=== PATIENT | male | born 1940 | race Caucasian/White ===

== ENCOUNTER 2019-03-12 12:01 | Inpatient (IN) | payer MEDICARE, OTHER, SELFPAY ==
[2019-03-12] VITALS (10 sets, daily range): BP systolic 88–148; BP diastolic 51–83; PULSE 86–110; RESP 16–22; TEMP 36.4–37.3; O2SAT 91–96; BMI 34.9
--- NOTE | 2019-03-12 12:26 | ED_ITS ---
Entered by Alyssa Carl, acting as scribe for Erika Bruce MD, [facility] Mar 12, 2019 12:01 HPI - General Adult General: Chief complaint: General Medical Stated complaint: BLEEDING IN A DIAPER Time Seen by Provider: 03/12/19 12:18 Source: patient, family and RN notes reviewed Mode of arrival: ambulatory Limitations: no limitations and altered mental status History of Present Illness: HPI narrative: 78 yo male presents to ED with complaints of bleeding in his Depends. The family states that when the patient got up that the patient's Depend was full of blood and blood clots. She said the bedding was soaked in blood and the bathroom floor was covered in blood. The patient denies pain. He said he does not know where the blood is coming from. The patient's spouse 4 days ago. The patient has Parkinson's and has an implant in his head and one in his chest. The patient has a stroke history as well. The family said that his last known bowel movement was 2 days ago but the patient has not been eating nor drinking much since his . complaint: bleeding in depend Onset (ago): day(s) (1) Location: lower extremity Severity: severe Quality: other (bleeding) Relieving factors: none Exacerbating factors: none Treatments prior to arrival: none Review of Systems General: Reports: ROS unobtainable due to mental status PFSH ED PFSH: Statuses (acute, chronic, etc) shown below reflect problem list status as previously entered and may not be historically accurate Social History Smoking and tobacco status: former smoker Physical Exam Const: COMMON NORMALS: no apparent distress, average body habitus, oriented x3, no limitations, healthy appearing, alert and well nourished HENMT: COMMON NORMALS: normocephalic, head/scalp atraumatic and moist oral mucous membranes HEAD & SCALP: normocephalic and atraumatic Eye: COMMON NORMALS: PERRL, EOMs intact bilaterally, conjunctivae normal and no scleral icterus CONJUNCTIVA: Yes conjunctivae normal PUPIL: Yes PERRL Neck/C-Spine: COMMON NORMALS: full ROM, supple, no meningeal signs, no JVD and no carotid bruits Chest: COMMONS NORMALS: inspection of chest normal and palpation of chest normal Resp: COMMON NORMALS: normal respiratory effort, no retractions, no use of accessory muscles, clear to auscultation bilaterally and percussion normal AUSCULTATION: clear to auscultation bilaterally PERCUSSION: percussion normal Cardio: COMMON NORMALS: no JVD, regular rate, regular rhythm, S1 normal heart sound, S2 normal heart sound, no gallops, no clicks, no murmurs, no rub and peripheral pulses 2+ throughout RATE: regular rate RHYTHM: regular rhythm HEART SOUNDS: S1 normal and S2 normal PERIPHERAL PULSES: pulses 2+ throughout GI: COMMON NORMALS: normal to inspection, nondistended, normoactive bowel sounds, soft to palpation, non-tender, no hepatosplenomegaly, no masses and no bruits PALPATION: Yes soft and Yes no hepatosplenomegaly : COMMON NORMALS: Yes no CVA tenderness BLADDER/KIDNEY EXAM: Yes no CVA tenderness Back/Pelvis: COMMON NORMALS: no CVA tenderness Extremity: COMMON NORMALS: normal to inspection, full ROM, normal capillary refill, no calf tenderness and no pedal edema Neuro: COMMON NORMALS: oriented x3 SENSORIUM/ORIENTATION: Yes alert MENINGEAL SIGNS: Yes no meningeal signs Skin: COMMON NORMALS: no rashes or lesions noted, no wounds, skin turgor normal, no jaundice, no petechiae and no mottling GENERAL SKIN EXAM: no rashes or lesions noted and turgor normal Course Consultations: Consultation #1: Dr. Castle, hospitalist. He kindly accepted the patient to his service. Vital Signs: Vital signs: Vital Signs Temperature 99.2 F 03/12/19 12:07 Pulse Rate 90 03/12/19 13:15 Respiratory Rate 17 03/12/19 13:43 Blood Pressure 105/65 03/12/19 13:43 Pulse Oximetry 92 03/12/19 13:43 MDM - General Adult MDM Narrative: Medical decision making narrative: 78-year-old gentleman with dementia who presented to the emergency department with blood in his diapers which according to his family was a large. They were unable to determine where the blood came from. Digital rectal examination was negative for blood. He had brown stool in his rectum. Guaiac was negative. Cath UA showed grossly bloody urine and on urinalysis he has features suggestive of UTI. CT scan of his abdomen showed possible pyelonephritis. White cell count is significantly elevated at 17.4. He is therefore admitted to the hospital for management of acute pyelonephritis. Medical Records: Attestation: I reviewed the patient's medical records. Lab Data: Attestation: I reviewed the patient's lab results. Labs: Lab Results 03/12/19 03/12/19 03/12/19 Range/Units 12:28 12:28 12:28 WBC 17.4 H (4.0-10.0) 10^3/ uL RBC 4.81 (4.1-5.3) 10^6/u L Hgb 13.5 (11.7-16.6) g/dL Hct 42.1 (42.0-52.0) % MCV 87.5 (80-94) fL MCH 28.1 (28.0-34.0) pg MCHC 32.1 (30.0-36.0) g/dL RDW 13.7 (12.1-15.1) % Plt Count 232 (130-400) 10^3/c mm MPV 10.8 H (7.4-10.4) fL Neut % (Auto) 87.3 % Lymph % (Auto) 6.0 % [place] % (Auto) 5.7 % Eos % (Auto) 0.2 % Baso % (Auto) 0.3 % Neut # (Auto) 15.2 H (1.8-7.7) 10^3/u L Lymph # (Auto) 1.1 (0.8-4.8) 10^3/u L [place] # (Auto) 1.0 H (0.2-0.9) 10^3/u L Eos # (Auto) 0.0 (0.0-0.8) 10^3/u L Baso # (Auto) 0.1 (0.0-0.1) 10^3/u L Nucleated RBC % (a uto) 0 % Nucleated RBCs # 0.0 /100WBC PT 13.70 H (10.5-13.3) SECO NDS INR 1.02 (0.8-1.2) Sodium 139 (136-145) mmol/L Potassium 4.6 (3.5-5.1) mmol/L Chloride 99 (98-107) mmol/L Carbon Dioxide 24 (22-29) mmol/L Anion Gap 20.6 H (5-19) BUN 16 (8-23) mg/dL Creatinine 1.5 H (0.7-1.2) mg/dL Glucose 125 H (74-106) mg/dL Lactate (0.5-2.2) mmol/L Calcium 10.7 H (8.5-10.5) mg/dL Total Bilirubin 0.9 (0.15-1.2) mg/dL AST 20 (0-40) U/L ALT 19 (0-41) U/L Alkaline Phosphata se 57 (40-130) IU/L Total Protein 8.1 (6.6-8.7) g/dL Albumin 4.7 (3.5-5.2) g/dL Globulin 3.4 (1.3-4.6) g/dL Urine Color (Yellow) Urine Appearance (CLEAR) Urine pH (5-7) Ur Specific Gravit y (1.005-1.030) Urine Protein (Negative) Urine Glucose (UA) (Normal) Urine Ketones (Negative) Urine Occult Blood (Negative) Urine Nitrate (Negative) Urine Bilirubin (NEGATIVE) Urine Urobilinogen (Negative) mg/dL Ur Leukocyte Federica ase (Negative) Urine RBC (0-2) /hpf Urine WBC (0-5) /hpf Ur Squamous Epith Cells (0-5) Urine Bacteria (NONE) 03/12/19 03/12/19 Range/Units 13:03 13:12 WBC (4.0-10.0) 10^3/ uL RBC (4.1-5.3) 10^6/u L Hgb (11.7-16.6) g/dL Hct (42.0-52.0) % MCV (80-94) fL MCH (28.0-34.0) pg MCHC (30.0-36.0) g/dL RDW (12.1-15.1) % Plt Count (130-400) 10^3/c mm MPV (7.4-10.4) fL Neut % (Auto) % Lymph % (Auto) % [place] % (Auto) % Eos % (Auto) % Baso % (Auto) % Neut # (Auto) (1.8-7.7) 10^3/u L Lymph # (Auto) (0.8-4.8) 10^3/u L [place] # (Auto) (0.2-0.9) 10^3/u L Eos # (Auto) (0.0-0.8) 10^3/u L Baso # (Auto) (0.0-0.1) 10^3/u L Nucleated RBC % (a uto) % Nucleated RBCs # /100WBC PT (10.5-13.3) SECO NDS INR (0.8-1.2) Sodium (136-145) mmol/L Potassium (3.5-5.1) mmol/L Chloride (98-107) mmol/L Carbon Dioxide (22-29) mmol/L Anion Gap (5-19) BUN (8-23) mg/dL Creatinine (0.7-1.2) mg/dL Glucose (74-106) mg/dL Lactate 2.3 H (0.5-2.2) mmol/L Calcium (8.5-10.5) mg/dL Total Bilirubin (0.15-1.2) mg/dL AST (0-40) U/L ALT (0-41) U/L Alkaline Phosphata se (40-130) IU/L Total Protein (6.6-8.7) g/dL Albumin (3.5-5.2) g/dL Globulin (1.3-4.6) g/dL Urine Color Brown (Yellow) Urine Appearance Hazy A (CLEAR) Urine pH 6.5 (5-7) Ur Specific Gravit y 1.020 (1.005-1.030) Urine Protein 3+ H (Negative) Urine Glucose (UA) Norm (Normal) Urine Ketones 1+ H (Negative) Urine Occult Blood 3+ H (Negative) Urine Nitrate Negative (Negative) Urine Bilirubin Neg (NEGATIVE) Urine Urobilinogen Norm (Negative) mg/dL Ur Leukocyte Federica ase 2+ H (Negative) Urine RBC Too numerous to c nt H (0-2) /hpf Urine WBC >100 H (0-5) /hpf Ur Squamous Epith Cells 0-4 H (0-5) Urine Bacteria 2+ H (NONE) Discharge Plan Discharge Patient Disposition: Admitted As Inpatient Clinical Impression: Acute pyelonephritis, Hematuria due to acute cystitis, Leukocytosis Condition: Stable Prescriptions: No Action atorvastatin 80 mg tablet PO RF: 0 gabapentin 400 mg capsule RF: 0 glipizide 5 mg tablet extended release 24hr PO RF: 0 metformin 850 mg tablet RF: 0 clopidogrel 75 mg tablet RF: 0 mirtazapine 15 mg tablet RF: 0 escitalopram oxalate 20 mg tablet RF: 0 metoprolol tartrate 25 mg tablet RF: 0 losartan-hydrochlorothiazide 100-12.5 mg tablet RF: 0 Referrals: Amie Carranza MD [Family Provider] - Coding Level of Care Code ED Department Specialist for Chg Fwd The documentation recorded by the Meseret scott Valerie R, accurately reflects the service I personally performed and the decisions made by Janis landa Adegoke I, MD, [facility] Mar 12, 2019 12:01
[2019-03-12 13:02] LABS: Basophils # 0.1 10^3/uL (0.0-0.1); Basophils % 0.3 %; Eosinophils % 0.2 %; Hematocrit 42.1 % (42.0-52.0); Hemoglobin 13.5 g/dL (11.7-16.6); Lymphocytes # 1.1 10^3/uL (0.8-4.8); Mean Corpuscular HGB Conc 32.1 g/dL (30.0-36.0); Mean Corpuscular Hemoglobin 28.1 pg (28.0-34.0); Mean Corpuscular Volume 87.5 fL (80-94); Mean Platelet Volume 10.8 fL (7.4-10.4); Monocytes % 5.7 %; Neutrophils # 15.2 10^3/uL (1.8-7.7); Neutrophils % 87.3 %; Nucleated Red Blood Cells % 0 %; Platelet Count 232 10^3/cmm (130-400); Red Blood Count 4.81 10^6/uL (4.1-5.3); Red Cell Distribution Width 13.7 % (12.1-15.1); White Blood Count 17.4 10^3/uL (4.0-10.0)
[2019-03-12 13:16] LABS: INR 1.02 (0.8-1.2)
[2019-03-12 13:21] LABS: Alanine Aminotransferase 19 U/L (0-41); Albumin Level 4.7 g/dL (3.5-5.2); Alkaline Phosphatase 57 IU/L (40-130); Anion Gap 20.6 (5-19); Aspartate Amino Transferase 20 U/L (0-40); Blood Urea Nitrogen 16 mg/dL (8-23); Calcium 10.7 mg/dL (8.5-10.5); Carbon Dioxide 24 mmol/L (22-29); Chloride 99 mmol/L (98-107); Globulin 3.4 g/dL (1.3-4.6); Glucose 125 mg/dL (74-106); Potassium 4.6 mmol/L (3.5-5.1); Sodium 139 mmol/L (136-145); Total Bilirubin 0.9 mg/dL (0.15-1.2); Total Protein 8.1 g/dL (6.6-8.7)
[2019-03-12 13:41] LABS: Lactate (Lactic Acid level) 2.3 mmol/L (0.5-2.2)
--- NOTE | 2019-03-12 13:43 | CTR_ITS ---
PROCEDURE INFORMATION: Exam: CT Abdomen And Pelvis Without Contrast Exam date and time: 03/12/2019 1:44 PM Age: 78 years old Clinical indication: Other: Rectal bleeding; Additional info: Hematuria TECHNIQUE: Imaging protocol: Computed tomography of the abdomen and pelvis without contrast. Total DLP: 1860.86 mGy-cm Radiation optimization: All CT scans at this facility use at least one of these dose optimization techniques: automated exposure control; mA and/or kV adjustment per patient size (includes targeted exams where dose is matched to clinical indication); or iterative reconstruction. COMPARISON: CT abdomen pelvis w con* [id number] 04/23/2017 1:26 PM FINDINGS: Lungs: There is bibasilar linear atelectasis versus scarring. Couple of small calcified granulomas are incidentally noted. Mediastinum: There is a small unchanged hiatal hernia. Liver: Liver calcifications are noted. Gallbladder and bile ducts: Hyper attenuating foci along the dependent portion of the gallbladder likely reflect small gallstones. There is no current CT evidence of acute cholecystitis. Pancreas: No ductal dilation. Spleen: Splenic calcifications are noted. Adrenals: No mass. Kidneys and ureters: There is mild bilateral perinephric stranding, not significantly changed. There is no evidence of hydronephrosis. Punctate nonobstructing calcifications on the left may be vascular or reflect nonobstructing nephroliths. There is an unchanged 1.2 cm inferior left renal cyst. Stomach and bowel: There is a large amount of formed stool within the rectum. There is mild wall thickening at the rectosigmoid junction. A few colonic diverticulum are noted. There is no evidence of diverticulitis. There is no evidence of bowel obstruction. Appendix: No evidence of appendicitis. Intraperitoneal space: No free air. No significant fluid collection. Vasculature: Aortoiliac and branch vessel atherosclerotic calcifications are noted. Lymph nodes: No enlarged lymph nodes. Bladder: The bladder is predominantly decompressed with mixed attenuation centrally and circumferential wall thickening. Reproductive: Unremarkable as visualized. Bones/joints: Partially imaged median sternotomy is noted. Old healed right-sided rib fractures are noted. There is an unchanged compression deformity involving the T12 vertebral body with retropulsion of the posterior superior endplate. There is unchanged grade 1 anterolisthesis of L4 on L5. There are multilevel degenerative changes of the spine. Sclerotic lesion within the right iliac bone is unchanged, likely reflecting a bone island. Soft tissues: There is a small amount of fat within the umbilicus. CT/CT kidney stone [id number] IMPRESSION: 1. Large amount of formed stool within the rectum. Correlate for evidence of impaction/stercoral colitis. 2. Mild wall thickening at the level of the rectosigmoid junction. Findings may be secondary to decompression versus nonspecific colitis. Correlate with direct visualization as warranted. 3. Diverticulosis without evidence of diverticulitis. 4. Mixed attenuation within the urinary bladder with mild wall thickening. Findings may be related to decompression versus nonspecific cystitis. Given the patient's history of hematuria, neoplasm cannot be entirely excluded. Correlate with direct visualization as warranted. 5. Mild bilateral perinephric stranding without evidence of hydronephrosis. There are a few punctate calcifications within the left kidney, which may be vascular or reflect nonobstructing calcifications. Correlate to exclude recently passed stone versus pyelonephritis. 6. Additional nonacute findings as detailed above. Radiation Dose CTDIVOL = (mGy): DLP = 1860.86 (mGy-cm)
[2019-03-12 13:53] LABS: Urine Appearance Hazy (CLEAR); Urine Color Brown (Yellow)
[2019-03-12 13:54] LABS: Add Urine Microscopic? YES; Bilirubin Urine Neg (NEGATIVE); Blood Urine 3+ (Negative); Glucose Urine UA Norm (Normal); Ketones Urine 1+ (Negative); Leukocyte Esterase Urine 2+ (Negative); Nitrate Urine Negative (Negative); Protein Urine 3+ (Negative); Urobilinogen Urine Norm (Negative); pH Urine 6.5 (5-7)
[2019-03-12 14:13] LABS: RBC Urine TOO NUMEROUS TO CNT /hpf (0-2)
[2019-03-12 14:15] LABS: WBC Urine >100 /hpf (0-5)
[2019-03-12 14:16] LABS: Add Urine Culture? Yes; Bacteria Urine 2+; Squamous Epithelial Cell Urine 0-4 (0-5)
[2019-03-12] MEDS: sodium chloride 0.9% 1,000 ML 999 ML IV (15:28)
[2019-03-12] MEDS: cefepime 2,000 MG in sodium chloride 0.9% (plus) 50 ML 100 MG IV (15:28)
--- NOTE | 2019-03-12 15:37 | PM.HP ---
Providers/Chief Complaint Chief Complaint: BLEEDING IN A DIAPER History of Present Illness Arturo Palomino is a 78 year old male brought into the emergency department by daughter. There was concern about blood in his diaper. His recently , and the daughters cared for in the last 2 days. Normally she is out of state and does not know his history well. She is not present for my interview. The patient reports he feels okay. He does not have any specific complaints currently. He reports he has not really been eating and drinking well. He denies any fevers. He does report some dysuria at times but reports he cannot control his urine at all anymore. Nurse alerts me that with acute Luis, there was not significant residual urine. Patient is a poor historian and appears to have some cognitive delay. He did have a fall several days ago with apparently no injuries but details are uncertain. Review of Systems General: Reports: 10 or more systems reviewed and unremarkable except in HPI and below Const: Denies: fever Eyes: Denies: blurry vision ENMT: Denies: throat pain Card: Denies: chest pain Resp: Denies: shortness of breath GI: Denies: abdominal pain : Reports: other (Blood in diaper, presumably from urine); Denies: flank pain Musc: Denies: neck pain Skin/Breast: Denies: rash Neuro: Denies: headache Psych: Denies: anxiety Endo: Denies: excessive urination Ren/Lymph: Denies: easy bruising All/Imm: Denies: hives Medications/Allergies Home Medications Medication Instructions Recorded Confirmed Last Taken Type atorvastatin mg PO 03/12/19 Unknown History clopidogrel 03/12/19 Unknown History escitalopram oxalate mg 03/12/19 Unknown History gabapentin 03/12/19 Unknown History glipizide mg PO 03/12/19 Unknown History losartan-hydrochlorothiazide tab 03/12/19 Unknown History metformin mg 03/12/19 Unknown History metoprolol tartrate 03/12/19 Unknown History mirtazapine mg 03/12/19 Unknown History Allergies Allergy/AdvReac Type Severity Reaction Status Date / Time Unable to Assess Allergy Unverified 03/12/19 12:16 PFSH Acute PFSH: Statuses (acute, chronic, etc) shown below reflect problem list status as previously entered and may not be historically accurate Medical History (Updated 03/12/19 @ 15:41 by Juan Miguel Castle MD) Anemia (Acute) Coronary artery disease (Acute) Depression (Acute) Diabetes mellitus (Acute) History of closed head injury (Acute) Hypertension (Acute) Parkinsons disease (Acute) TIA (transient ischemic attack) (Acute) Surgical History (Updated 03/12/19 @ 15:41 by Juan Miguel Castle MD) History of coronary artery bypass graft (Acute) Status post left foot surgery (Acute) Family History (Updated 03/12/19 @ 15:41 by Juan Miguel Castle MD) Other CAD (coronary artery disease) Social History (Updated 03/12/19 @ 15:42 by Juan Miguel Castle MD) Smoking and tobacco status: former smoker Alcohol intake: never Substance/Drug Use: never Vitals/I&O/Wt Last Vital Signs Temp 99.2 F 03/12/19 12:07 Pulse 90 03/12/19 13:15 Resp 17 03/12/19 13:43 BP 105/65 03/12/19 13:43 Pulse Ox 92 03/12/19 13:43 Weight last 48 hrs Weight 120.202 kg Physical Exam Narrative: EXAM NARRATIVE: General exam is no apparent distress, conversant and pleasant but appears to have some cognitive delay HEENT: Pupils equally round. Oropharynx clear. Neck is supple no lymphadenopathy thyromegaly. Denies pain. Cardiovascular regular rate and rhythm without murmur, no S3 or S4 Lungs clear no wheezing or crackles Abdomen is soft, positive bowel sounds. Extremities no cyanosis clubbing. Trace edema bilaterally. Neurologic: No obvious focal deficits. Resting tremor noted. Skin some abrasions noted left upper extremity and left arm Data : 03/12/19 12:28 03/12/19 12:28 Other data: Urine reviewed as well with too numerous to count reds, greater than 100 whites, 2+ bacteria, 2+ leukocyte esteracse CT abdomen pelvis demonstrates large amount of stool, bladder wall thickening, perinephric stranding. A&P Assessment and plan (1) Acute pyelonephritis: Consistent with complicated UTI considering significant hematuria IV antibiotics consisting of Rocephin. 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 Hold anticoagulation secondary to hematuria Attestations Medical Necessity Statement*: Will need greater than 2 midnight hospital stay for evaluation and treatment of complicated UTI Time Spent in Patient Care: Greater than 35 minutes Coding Level of Care Code Acute Shredder/Granulator Operator for g Fwd Diagnoses Acute pyelonephritis N10 Hematuria due to acute cystitis N30.01 Leukocytosis D72.829
[2019-03-12 18:23] LABS: Add On to Lab Order(s) Added
--- NOTE | 2019-03-12 19:00 | PC.NURSE ---
Introduction of staff and report received, aidet.
[2019-03-12 19:21] LABS: Thyroid Stimulating Hormone 1.19 uIU/mL (0.27-4.20); Vitamin B12 374 pg/mL (232-1245)
[2019-03-12 21:04] LABS: Glucose Point of Care 159 mg/dL (70-110)
[2019-03-12] MEDS: atorvastatin 40 mg Tablet 80 MG PO (22:02)
[2019-03-12] MEDS: sennosides 8.6 mg Tablet 17.2 MG PO (22:02)
[2019-03-12] MEDS: docusate sodium 100 mg Capsule PO (22:03)
[2019-03-12] MEDS: metoprolol tartrate 25 mg Tablet PO (22:03)
[2019-03-12] MEDS: sodium chloride 0.9% 1,000 ML 75 ML IV (22:08)
[2019-03-13] VITALS (7 sets, daily range): BP systolic 91–166; BP diastolic 53–93; PULSE 75–91; RESP 16–20; TEMP 36.8–37.4; O2SAT 90–97
[2019-03-13] MEDS: ondansetron 2 mg/ML SDV 2 mL 4 MG IVP (04:39)
[2019-03-13 05:27] LABS: Basophils % 0.3 %; Eosinophils % 0.1 %; Hematocrit 39.8 % (42.0-52.0); Hemoglobin 12.6 g/dL (11.7-16.6); Lymphocytes # 1.7 10^3/uL (0.8-4.8); Lymphocytes % 11.5 %; Mean Corpuscular HGB Conc 31.7 g/dL (30.0-36.0); Mean Corpuscular Hemoglobin 27.9 pg (28.0-34.0); Mean Corpuscular Volume 88.1 fL (80-94); Mean Platelet Volume 10.8 fL (7.4-10.4); Monocytes % 6.6 %; Neutrophils # 11.8 10^3/uL (1.8-7.7); Neutrophils % 81.1 %; Nucleated Red Blood Cells % 0 %; Platelet Count 183 10^3/cmm (130-400); Red Blood Count 4.52 10^6/uL (4.1-5.3); Red Cell Distribution Width 13.8 % (12.1-15.1); White Blood Count 14.5 10^3/uL (4.0-10.0)
[2019-03-13 05:49] LABS: Anion Gap 17.7 (5-19); Blood Urea Nitrogen 11 mg/dL (8-23); Calcium 9.7 mg/dL (8.5-10.5); Carbon Dioxide 20 mmol/L (22-29); Chloride 102 mmol/L (98-107); Glucose 138 mg/dL (74-106); Osmolality Calculated 280 mOsm/kg (285-295); Potassium 3.7 mmol/L (3.5-5.1); Sodium 136 mmol/L (136-145)
[2019-03-13 06:40] LABS: Glucose Point of Care 138 mg/dL (70-110)
[2019-03-13] MEDS: docusate sodium 100 mg Capsule PO (09:12)
[2019-03-13] MEDS: escitalopram 10 mg Tablet 20 MG PO (09:12)
[2019-03-13] MEDS: metoprolol tartrate 25 mg Tablet PO ×2 (09:12→18:10)
--- NOTE | 2019-03-13 10:52 | PC.RESP ---
Pt up with PT and sats dropped to 87%-placed on 2lpm . Can we have order?
--- NOTE | 2019-03-13 11:08 | PC.NURSE ---
JORDAN WITH PHYSICAL THERAPY WAS IN SEEING TERENCE SIERRA AND NOTED THAT HIS OXYGEN SATURATION WAS AT 87% ON ROOM AIR SO HE NOTIFIED THIS NURSE AND RESPIRATORY THERAPY AND SHE CAME IN AND PLACED 2 LITERS OF OXYGEN ON THE PT AND HE IS NOW UP TO 93% OXYGEN SATURATION.
[2019-03-13 12:09] LABS: Glucose Point of Care 164 mg/dL (70-110)
--- NOTE | 2019-03-13 13:14 | PM.PN ---
Subjective Subjective: Interval history: Arturo reports that he is doing okay. No family at bedside. He voices no specific complaints. Medications: Reviewed: Yes Vitals/I&O/Wt Last Vital Signs Temp 98.3 F 03/13/19 11:37 Pulse 91 03/13/19 11:37 Resp 20 H 03/13/19 11:37 BP 91/53 03/13/19 11:37 Pulse Ox 90 03/13/19 11:37 03/12/19 03/13/19 03/13/19 22:59 06:59 14:59 Intake Total 240 / 240 600 / 600 Balance 240 / 240 600 / 600 Weight last 48 hrs Weight 99.847 kg Weight 120.202 kg Physical Exam Narrative: EXAM NARRATIVE: General no apparent distress Cardiovascular regular rate and rhythm Lungs clear Abdomen is soft, positive bowel sounds Extremities no cyanosis clubbing or edema Data : 03/13/19 04:53 03/13/19 04:53 Micro: Microbiology 03/12/19 13:12 Urine Culture - Preliminary Urine,Clean Catch Gram Negative Rods 03/12/19 18:56 Blood Culture - Preliminary Blood SPECIMEN COLLECTED 03/12/19 18:52 Blood Culture - Preliminary Blood SPECIMEN COLLECTED A&P Assessment and plan (1) Acute pyelonephritis: Consistent with complicated UTI considering significant hematuria IV antibiotics consisting of Rocephin. Await urine culture. 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 Hold anticoagulation secondary to hematuria Discharge planning to check with family if placement will be needed. Attestations Medical Necessity Statement*: Needs continued hospital stay for IV antibiotics related to complicated UTI Coding Level of Care Code Acute Child Care Education Coordinator for [facility] Fwd Diagnoses Acute pyelonephritis N10 Hematuria due to acute cystitis N30.01 Leukocytosis D72.829
--- NOTE | 2019-03-13 13:22 | PC.CHAP ---
Pastoral Care Encounter/Spiritual Assessment Type of Contact [] Declined needle loom operator helper visit [] Patient/Family/Request visit [] Outpatient visit [] Follow-up visit [] Physician referral [] Code/Alert [x] Routine visit [] Staff referral [] Actively dying [] Patient sleeping [] Family support [] [] Out of room [] Palliative care [] [] Receiving care in room [] Pre-surgical visit [] Trauma [] Long length of stay [] ICU visit [] Other: Relational/Emotional Strength [] Patient feels connected with others/family/visitors/staff [x] Distress [] Loneliness/isolation [] Abandonment Spirituality of Patient [] Person of Mel [] Attends Shinto of their Mel [] Believes in Prayer [] Reads Bible or Scientology materials [x] There are Spiritual issues to be addressed Financial Agent Interventions [] Prayer [x] Active listening [x] Non-anxious presence [] Spiritual/emotional support [] Crisis/trauma care [] Spiritual counseling [] Bereavement support [] Provided bereavement packet [] Provided Bible/devotional materials [] Provided toy/stuffed animal, coloring book to patient or family member [] Provided Communion [] Anointing/[place] [] Salvation [x] Completed spiritual assessment [] Other: Impact on Illness or Injury [] Angry [] Fearful [] Anxious [] Often cries [] Exhaustion [] Unable to work [] Unable to attend shinto [] Unable to walk/stand [] Unable to read [] Unable to drive [] Unable to eat/drink [] Unable to sleep [] Unable to be with family [] Patient intubated [] Other: Summary Patient didn't communicate well verbally. When asked if the needle loom operator helper could do anything for him he stated you can get me out of here. When needle loom operator helper stated that it wasn't in his authority to do that but that he could pray with him if he would like, the patient indicated that he didn't need anything else he needed to go home. Patient was visited by Financial Agent Byron Dow Time spent with patient 8 minutes
[2019-03-13] MEDS: sodium chloride 0.9% 1,000 ML 75 ML IV ×2 (14:15→21:43)
[2019-03-13 16:38] LABS: Glucose Point of Care 222 mg/dL (70-110)
[2019-03-13] MEDS: cefTRIAXone 2,000 MG in sodium chloride 0.9% (plus) 50 ML 100 MG IV (18:08)
--- NOTE | 2019-03-13 19:00 | PC.NURSE ---
Introduction of staff and report received, aidet.
[2019-03-13] MEDS: atorvastatin 40 mg Tablet 80 MG PO (21:41)
[2019-03-13] MEDS: sennosides 8.6 mg Tablet 17.2 MG PO (21:43)
[2019-03-13 21:48] LABS: Glucose Point of Care 114 mg/dL (70-110)
[2019-03-14] VITALS: BP 136/72; PULSE 75; RESP 20; TEMP 37.1; O2SAT 93
--- NOTE | 2019-03-14 03:32 | PC.NURSE ---
Pt pulled iv out, stated it was bothering me . Pt getting only iv fluids at 30ml/hr to keep vein open. will re-access later this shift.
[2019-03-14 04:00] VITALS: BP 144/81; PULSE 73; RESP 20; TEMP 36.7; O2SAT 91
[2019-03-14 06:57] LABS: Glucose Point of Care 122 mg/dL (70-110)
[2019-03-14 07:48] VITALS: BP 138/76; PULSE 84; RESP 18; TEMP 36.8; O2SAT 95
[2019-03-14] MEDS: metoprolol tartrate 25 mg Tablet PO ×2 (08:33→17:44)
[2019-03-14] MEDS: escitalopram 10 mg Tablet 20 MG PO (08:33)
[2019-03-14] MEDS: docusate sodium 100 mg Capsule PO ×2 (08:33→17:44)
[2019-03-14 10:59] LABS: Glucose Point of Care 184 mg/dL (70-110)
[2019-03-14 11:51] VITALS: BP 130/64; PULSE 64; RESP 18; TEMP 36.8; O2SAT 95
[2019-03-14 15:30] VITALS: BP 126/66; PULSE 74; RESP 18; TEMP 36.1; O2SAT 96
[2019-03-14 16:11] LABS: Glucose Point of Care 122 mg/dL (70-110)
--- NOTE | 2019-03-14 16:17 | P.PN_ITS ---
Subjective Subjective: Interval history: Arturo denies any specific complaints. Nurses have no concerns. He is amenable to going to skilled care. Medications: Reviewed: Yes Vitals/I&O/Wt Last Vital Signs Temp 96.9 F L 03/14/19 15:30 Pulse 74 03/14/19 15:30 Resp 18 03/14/19 15:30 BP 126/66 03/14/19 15:30 Pulse Ox 96 03/14/19 15:30 03/14/19 03/14/19 03/14/19 06:59 14:59 22:59 Intake Total 240 / 2470 480 / 480 Balance 240 / 2470 480 / 480 Weight last 48 hrs Weight 100.607 kg Weight 100.272 kg Weight 99.847 kg Physical Exam Narrative: EXAM NARRATIVE: General no apparent distress. Conversant. Cardiovascular regular rate and rhythm Lungs clear Abdomen is soft, positive bowel sounds Extremities no cyanosis clubbing or edema Data : 03/13/19 04:53 03/13/19 04:53 Micro: Microbiology 03/12/19 13:12 Urine Culture - Final Urine,Clean Catch Escherichia coli 03/12/19 18:56 Blood Culture - Preliminary Blood NEGATIVE TO DATE 03/12/19 18:52 Blood Culture - Preliminary Blood NEGATIVE TO DATE A&P Assessment and plan (1) Acute pyelonephritis: Consistent with complicated UTI considering significant hematuria. Urine culture demonstrated E. coli, which was pansensitive Currently on IV Rocephin in. Status: Acute Code(s): N10 - Acute pyelonephritis (2) Hematuria due to acute cystitis: See above, urine culture demonstrated E. coli. No significant hematuria currently. 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
--- NOTE | 2019-03-14 19:00 | PC.NURSE ---
INTRODUCTION OF STAFF AND REPORT RECEIVED, AIDET.
[2019-03-14] MEDS: atorvastatin 40 mg Tablet 80 MG PO (19:59)
[2019-03-14 20:00] VITALS: BP 133/83; PULSE 74; RESP 20; TEMP 37.2; O2SAT 92
[2019-03-14] MEDS: sennosides 8.6 mg Tablet 17.2 MG PO (20:00)
[2019-03-14] MEDS: cefTRIAXone 2,000 MG in sodium chloride 0.9% (plus) 50 ML 100 MG IV (20:00)
[2019-03-14] MEDS: sodium chloride 0.9% 1,000 ML 30 ML IV (20:03)
[2019-03-14 21:06] LABS: Glucose Point of Care 147 mg/dL (70-110)
--- NOTE | 2019-03-14 23:30 | PC.NURSE ---
PT MOVED TO ROOM 260 WHERE HE WILL BE CLOSER TO THE NURSES DESK DUE TO BEING A HIGH FALL RISK, AND ALSO SO PT CAN READ ANYTIME HE WANTS TO WITHOUT ROOMMATE COMPLAINING OF THE LIGHT BEING ON.
[2019-03-15] VITALS (7 sets, daily range): BP systolic 113–164; BP diastolic 74–97; PULSE 68–99; RESP 18–20; TEMP 36.4–36.8; O2SAT 87–97
[2019-03-15 05:54] LABS: Basophils # 0.1 10^3/uL (0.0-0.1); Basophils % 0.6 %; Eosinophils # 0.2 10^3/uL (0.0-0.8); Eosinophils % 2.3 %; Hematocrit 38.6 % (42.0-52.0); Hemoglobin 12.2 g/dL (11.7-16.6); Lymphocytes # 1.8 10^3/uL (0.8-4.8); Mean Corpuscular HGB Conc 31.6 g/dL (30.0-36.0); Mean Corpuscular Hemoglobin 28.9 pg (28.0-34.0); Mean Corpuscular Volume 91.5 fL (80-94); Mean Platelet Volume 10.4 fL (7.4-10.4); Monocytes # 0.7 10^3/uL (0.2-0.9); Monocytes % 7.1 %; Neutrophils % 71.7 %; Nucleated Red Blood Cells % 0 %; Platelet Count 193 10^3/cmm (130-400); Red Blood Count 4.22 10^6/uL (4.1-5.3); Red Cell Distribution Width 13.8 % (12.1-15.1); White Blood Count 9.7 10^3/uL (4.0-10.0)
[2019-03-15 06:11] LABS: Anion Gap 15.9 (5-19); Blood Urea Nitrogen 10 mg/dL (8-23); Calcium 9.4 mg/dL (8.5-10.5); Carbon Dioxide 22 mmol/L (22-29); Chloride 105 mmol/L (98-107); Glucose 128 mg/dL (65-115); Osmolality Calculated 286 mOsm/kg (285-295); Potassium 3.9 mmol/L (3.5-5.1); Sodium 139 mmol/L (136-145)
[2019-03-15 06:57] LABS: Glucose Point of Care 119 mg/dL (70-110)
[2019-03-15] MEDS: escitalopram 10 mg Tablet 20 MG PO (10:20)
[2019-03-15] MEDS: docusate sodium 100 mg Capsule PO (10:20)
[2019-03-15] MEDS: metoprolol tartrate 25 mg Tablet PO (10:21)
[2019-03-15] MEDS: clopidogrel 75 mg Tablet PO (10:21)
[2019-03-15 11:35] LABS: Glucose Point of Care 139 mg/dL (70-110)
--- NOTE | 2019-03-15 12:31 | P.DS_ITS ---
Discharge Providers Date of Admission: 03/12/19 15:10 Date of Discharge: Date of Discharge: March 15, 2019 Attending Provider at Admission: Juan Miguel Castle MD Attending Provider at Discharge: Juan Miguel Castle MD Diagnoses at Discharge Discharge Diagnosis (1) Acute pyelonephritis: Status: Acute Problem details: Will complete 7 more days of cefuroxime. Pansensitive E. coli (2) Hematuria due to acute cystitis: Status: Acute Problem details: Secondary to above (3) Leukocytosis: Status: Acute Problem details: Improved Reason for Visit Reason for Visit: Reason For Visit: BLEEDING IN A DIAPER Hospital Course Hospital Course: Arturo was brought to the hospital by his daughter with concern of blood in his diaper. His had recently , who normally cares for him. While in the emergency department he was found to have an elevated white blood cell count, urinalysis consistent with infection, and CT abdomen pelvis with question of pyelonephritis. Urine was cultured. Rocephin was started. He was followed closely and hydrated. Throughout the course of his hospital stay he gradually improved. Dehydration resolved. White blood cell count decreased. He remained afebrile. Urine culture ultimately returned E. coli, pansensitive. Secondary to his other comorbidities, Parkinson's disease and history of closed head injury it was thought he would do best transferring him to a [place] [facility] facility for further strengthening prior to going home with family. Physical Exam Narrative: EXAM NARRATIVE: Generalized exam is a white male in no apparent distress Cardiovascular regular rate and rhythm, no murmur Lungs clear no wheezing or crackles Abdomen is soft, positive bowel sounds Extremities no cyanosis clubbing or edema Discharge Data Data Completed and Pending: Completed Studies During Hospitalization Category Date Time Status CT kidney stone [id number] Urgent Cat Scan 03/12/19 13:43 Completed Pending at discharge Category Date Time Status Blood Culture Sta t Lab 03/12/19 18:56 Results Labs from last 24 hours 03/15/19 03/15/19 03/15/19 10:59 06:47 05:24 WBC RBC Hgb Hct MCV MCH MCHC RDW Plt Count MPV Neut % (Auto) Lymph % (Auto) [place] % (Auto) Eos % (Auto) Baso % (Auto) Neut # (Auto) Lymph # (Auto) [place] # (Auto) Eos # (Auto) Baso # (Auto) Nucleated RBC % (a uto) Nucleated RBCs # Sodium 139 Potassium 3.9 Chloride 105 Carbon Dioxide 22 Anion Gap 15.9 BUN 10 Creatinine 0.9 Glucose 128 H POC Glucose 139 119 Calculated Osmolal ity 286 Calcium 9.4 03/15/19 03/14/19 03/14/19 05:24 20:22 16:03 WBC 9.7 RBC 4.22 Hgb 12.2 Hct 38.6 L MCV 91.5 MCH 28.9 MCHC 31.6 RDW 13.8 Plt Count 193 MPV 10.4 Neut % (Auto) 71.7 Lymph % (Auto) 18.0 [place] % (Auto) 7.1 Eos % (Auto) 2.3 Baso % (Auto) 0.6 Neut # (Auto) 7.0 Lymph # (Auto) 1.8 [place] # (Auto) 0.7 Eos # (Auto) 0.2 Baso # (Auto) 0.1 Nucleated RBC % (a uto) 0 Nucleated RBCs # 0.0 Sodium Potassium Chloride Carbon Dioxide Anion Gap BUN Creatinine Glucose POC Glucose 147 122 Calculated Osmolal ity Calcium Vitals: Last Vital Signs Temp 98.0 F 03/15/19 11:01 Pulse 99 03/15/19 11:01 Resp 18 03/15/19 11:01 BP 144/91 03/15/19 11:01 Pulse Ox 93 03/15/19 11:01 Discharge Plan Discharge Patient Disposition: Xfer SNF Condition: Stable Prescriptions: New cefuroxime axetil 500 mg tablet 500 mg PO BID 7 Days Qty: 14 RF: 0 sennosides [Senna Lax] 8.6 mg Tablet 17.2 mg PO BEDTIME Qty: 30 RF: 0 Continued atorvastatin 80 mg tablet 80 mg PO DAILY RF: 0 gabapentin 400 mg capsule 400 mg PO TID RF: 0 glipizide 5 mg tablet extended release 24hr 5 mg PO DAILY RF: 0 metformin 850 mg tablet 850 mg PO DAILY RF: 0 clopidogrel 75 mg tablet 75 mg PO DAILY RF: 0 mirtazapine 15 mg tablet 15 mg PO BEDTIME RF: 0 escitalopram oxalate 20 mg tablet 20 mg PO DAILY RF: 0 metoprolol tartrate 25 mg tablet 25 mg PO BID RF: 0 losartan-hydrochlorothiazide 100-12.5 mg tablet 1 tab PO DAILY RF: 0 Tylenol Extra Strength 500 mg Tablet 500 mg PO QAM RF: 0 Aspirin Low Dose 81 mg Tablet,Delayed Release (Dr/Ec) 81 mg PO QPM RF: 0 Discharge Orders: Discharge Order (Routine); Ordered 03/15/19 Ordered By: Juan Miguel Castle Referrals: Amie Carranza MD [Family Provider] - Discharge Diet: Diabetic Discharge Activity: Resume usual activity Activity Restrictions/Additional Instructions: Follow-up with primary care provider [facility] [place] 3 to 5 days. 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
--- NOTE | 2019-03-15 14:24 | PC.SOCIAL ---
Pg 2 of IMM Pg 2 of IMM was explained to and signed by patient, copy was provided, and copy placed in chart. He verbalized understanding and had no questions.
[2019-03-15 16:47] LABS: Glucose Point of Care 139 mg/dL (70-110)
== END 2019-03-15 16:30 | disposition skilled nursing facility (03) | DRG 690 ==
LOC: ER 15:32 → MEDSURG 16:46
PROVIDERS: Admitting Provider Internal Medicine; Emergency Provider Family Medicine; Family Provider Family Medicine; Visit Provider Internal Medicine
DX: N10 Acute pyelonephritis (principal); N30.01 Acute cystitis with hematuria; D64.9 Anemia, unspecified; I25.10 Atherosclerotic heart disease of native coronary artery without angina pectoris; F32.9 Major depressive disorder, single episode, unspecified; I10 Essential (primary) hypertension; G20 Parkinson's disease; Z86.73 Personal history of transient ischemic attack (TIA), and cerebral infarction without residual deficits; Z87.891 Personal history of nicotine dependence; B96.20 Unspecified Escherichia coli [E. coli] as the cause of diseases classified elsewhere
CPT/HCPCS: 12345; 36415; 36416; 74176; 80048; 80053; 81001; 82607; 82962; 83605; 84443; 85025; 85610; 87040; 87077; 87086; 87186; 96365; 96372; 96375; 97110; 97116; 97162; 97530; 99283; J0692; J0696; J1815; J2405; J7030